=== PATIENT | female | born 1980 | race American Indian/Alaskan Native ===

== ENCOUNTER 2017-08-27 06:19 | Outpatient (CLI) | payer MEDICAID ==
[2017-08-27 06:40] VITALS: BP 109/58
[2017-08-27] MEDS ORDERED: LACTATED RINGERS 500 ML IV ONE (06:59)
--- NOTE | 2017-08-27 07:51 | Ultrasound Report ---
ULTRASOUND OB LIMITED History: Leaking fluid, rupture of membranes Technique: Transabdominal ultrasound with Doppler interrogation. Gestation: Single Position: Cephalic Amniotic Fluid: Normal EVELYN = 17.2 cm Heart Rate: 143 BPM Impression: Normal amniotic fluid.
--- NOTE | 2017-08-27 08:38 | Event Note ---
Date: 08/27/17 S: c/o LOF x one week. Positive FM, Negative vaginal bleeding O: Reactive, Category 1 UC: none SVE: Visually closed U/S: EVELYN: 17cm Spec Exam: Negative pooling, negative Nitz, + Yeast A: IUP at 30 week R/O PPROM-Negative P: Reassurance STI cultures D/C home
--- NOTE | 2017-08-27 08:44 | Discharge Summary ---
Providers - Providers Date of discharge: 08/27/17 Attending physician: MACK LUO Primary care physician: MACK LUO Hospitalization Reason for admission: other (IUP at 30 weeks LOF, negative) Discharge diagnosis: other Condition at discharge: Good Disposition: DC-01 TO HOME OR SELFCARE Plan - Discharge Medications Prescriptions: Fluconazole [Diflucan TAB] 100 mg PO QDAY #3 tablet - Provider Discharge Summary Additional instructions: [] Smoking cessation referral if applicable(refer to patient education folder for contact #) [] Refer to [facility] Booklet Call your doctor immediately for: * Fever > 100.5 * Heavy vaginal bleeding ( >1 pad per hour) * Severe persistent headache * Shortness of breath * Reddened, hot, painful area to leg or breast * Drainage or odor from incision. * Keep incision clean and dry at all times and follow doctor's instructions regarding bathing/showering - Follow up plan Follow up: MACK LUO MD [Primary Care Provider] - Forms: Discharge Signature Page
== END 2017-08-27 08:33 | disposition home or self-care (01) ==
LOC: TRG 06:19
PROVIDERS: ATTEND Obstetrics & Gynecology
DX: O42.92 Full-term premature rupture of membranes, unspecified as to length of time between rupture and onset of labor (principal); Z3A.30 30 weeks gestation of pregnancy
CPT/HCPCS: 59025; 76815; 87210; 87591

== ENCOUNTER 2017-10-12 21:41 | Outpatient (CLI) | payer MEDICAID ==
[2017-10-12 21:55] VITALS: BP 107/59
== END 2017-10-12 22:29 | disposition home or self-care (01) ==
LOC: TRG 21:41
PROVIDERS: ATTEND Obstetrics & Gynecology
DX: O09.523 Supervision of elderly multigravida, third trimester (principal); O26.893 Other specified pregnancy related conditions, third trimester; Z3A.37 37 weeks gestation of pregnancy

== ENCOUNTER 2017-10-25 01:28 | Outpatient (CLI) | payer MEDICAID ==
[2017-10-25 02:21] VITALS: BP 127/60
== END 2017-10-25 03:23 | disposition home or self-care (01) ==
LOC: TRG 01:28
PROVIDERS: ATTEND Obstetrics & Gynecology
DX: O47.1 False labor at or after 37 completed weeks of gestation (principal); Z3A.39 39 weeks gestation of pregnancy

== ENCOUNTER 2017-10-29 01:48 | Inpatient (IN) | payer MEDICAID ==
[2017-10-29] MEDS ORDERED: ZOFRAN IV PRN (02:55)
[2017-10-29] MEDS ORDERED: MINERAL OIL PO PRN (02:55)
[2017-10-29] MEDS ORDERED: BRETHINE SUB-Q PRN (02:55)
[2017-10-29] MEDS ORDERED: BRETHINE IVP PRN (02:55)
[2017-10-29] MEDS ORDERED: ePHEDrine SULFATE IV PRN ×2 (02:55→10:00)
[2017-10-29] MEDS ORDERED: PHENERGAN PO PRN (02:55)
[2017-10-29] MEDS ORDERED: XYLOCAINE 2% INFILTRATI ONE (02:55)
[2017-10-29] MEDS ORDERED: STADOL IV PRN (02:55)
[2017-10-29] MEDS ORDERED: SUBLIMAZE IV PRN (02:55)
[2017-10-29] MEDS ORDERED: PITOCin/NS 30 UNIT/500ML 30 UNITS/500 ML BAG IV SCH ×2 (03:00)
[2017-10-29] MEDS ORDERED: PITOCin/NS 20 UNIT/1000ML DRIP 20 UNITS/1,000 ML BAG IV SCH (03:00)
[2017-10-29 03:02] LABS: Hematocrit 31.4 % (30.3-42.9); Mean Corpuscular HGB Conc 35 % (30-34); Mean Corpuscular Hemoglobin 31 pg (28-32); Mean Corpuscular Volume 88 fl (79-97); Platelet Count 246 K/mm3 (140-440); Red Blood Count 3.55 M/mm3 (3.65-5.03); White Blood Count 6.6 K/mm3 (4.5-11.0)
[2017-10-29] MEDS: LACTATED RINGERS 1,000 ML IV SCH ×2 (03:39→08:00)
--- NOTE | 2017-10-29 04:44 | Ultrasound Report ---
FINAL REPORT EXAM: US OB FOLLOW UP HISTORY: SROM CONFRIM PRESENTATION TECHNIQUE: Limited transabdominal imaging was obtained of the pelvis. FINDINGS: There is a single intrauterine with an estimated gestational age of 39 weeks 1 day based on sonographic criteria. Estimated weight is 3912 grams. The fetus is in cephalic presentation with the head low in the pelvis. The heart rate is 156 BPM. The placenta is fundal in position and is grade 2. The EVELYN is 9.6 cm which is within normal range. A complete survey of organs was not obtained. IMPRESSION: Thirty-nine week 1 day IUP. heart rate is 156 BPM. The fetus is in cephalic presentation.
--- NOTE | 2017-10-29 08:43 | History and Physical Report ---
History of Present Illness Date of examination: 10/29/17 Date of admission: 10/29/17 01:59 History of present illness: 37 yo with SROM at 0100 this am. Start on low dose Pitocin during the night , now active man't. Bolus in process for epidural. First trimester entry into care at 11 weeks gestation. course complicated by AMA with [facility] referral and negative serum NIPT. 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 Late 1hr elevated GCT, 3hr GTT collected 10/28, results unavailable. U/S upon admission: EFW: 3912gms. GBS negative. Past History Past Medical History: no pertinent history [employer] History: chlamydia, herpes, trichomonas Family/Genetic History: hypertension Social history: no significant social history, single - Obstetrical History Expected Date of Delivery: 11/02/17 Actual Gestation: 39 Week(s) 3 Day(s) : 9 Para: 6 Hx # Term Pregnancies: 6 Number of Pregnancies: 0 Spontaneous Abortions: 2 Induced : 0 Number of Living Children: 6 Medications and Allergies Allergies Allergy/AdvReac Type Severity Reaction Status Date / Time No Known Allergies Allergy Verified 10/12/17 21:45 Home Medications Medication Instructions Recorded Confirmed Last Taken Type Doxycycline Hyclate [Doxycycline 100 mg PO BID #14 tablet 05/20/15 10/29/17 Unknown Rx Hyclate TAB] Ibuprofen [Motrin 800 MG tab] 800 mg PO Q8HR PRN #40 tablet 05/20/15 10/29/17 Unknown Rx oxyCODONE /ACETAMINOPHEN [Percocet 1 tab PO Q4HR PRN #30 tab 05/20/15 10/29/17 Unknown Rx 5/325 mg] Fluconazole [Diflucan TAB] 100 mg PO QDAY #3 tablet 08/27/17 10/29/17 Unknown Rx Vit No.129/Iron/Folic 1 each PO DAILY 10/29/17 10/29/17 10/28/17 19:00 History [ Tablet] Active Meds: Active Medications Butorphanol Tartrate (Stadol) 2 mg IV Q2H PRN PRN Reason: Pain , Severe (7-10) Ephedrine Sulfate (Ephedrine Sulfate) 10 mg IV Q2M PRN PRN Reason: Hypotension Fentanyl (Sublimaze) 100 mcg IV Q2H PRN PRN Reason: Labor Pain Last Admin: 10/29/17 07:30 Dose: 100 mcg Lactated Ringer's (Lactated Ringers) 1,000 mls @ 125 mls/hr IV DIRECT MARCO Last Admin: 10/29/17 08:00 Dose: 125 mls/hr Oxytocin/Sodium Chloride (Pitocin/Ns 20 Unit/1000ml Drip) 20 units in 1,000 mls @ 125 mls/hr IV DIRECT MARCO Oxytocin/Sodium Chloride (Pitocin/Ns 30 Unit/500ml) 30 units in 500 mls @ 1 mls /hr IV TITR MARCO; 1 MILLIUNITS/MIN PRN Reason: Protocol Last Titration: 10/29/17 08:18 Dose: 4 milliunits/min, 4 mls/hr Oxytocin/Sodium Chloride (Pitocin/Ns 30 Unit/500ml) 30 units in 500 mls @ 0 mls /hr IV TITR MARCO; As Directed PRN Reason: Protocol Mineral Oil (Mineral Oil) 30 ml PO QHS PRN PRN Reason: Constipation Ondansetron HCl (Zofran) 4 mg IV Q8H PRN PRN Reason: Nausea And Vomiting Promethazine HCl (Phenergan) 25 mg PO Q6H PRN PRN Reason: Nausea And Vomiting Terbutaline Sulfate (Brethine) 0.25 mg SUB-Q ONCE PRN PRN Reason: Hyperstimulation/Hypertonicity Terbutaline Sulfate (Brethine) 0.25 mg IVP ONCE PRN PRN Reason: Hyperstimulation/Hypertonicity Review of Systems All systems: negative - Vital Signs Vital signs: Vital Signs Pulse Pulse Ox 88 100 10/29/17 02:13 10/29/17 02:13 Temp Pulse Resp BP Pulse Ox 97.0 F L 83 18 129/66 98 10/29/17 07:10 10/29/17 07:15 10/29/17 07:30 10/29/17 07:15 10/29/17 03:40 - Physical Exam Abdomen: Positive: normal appearance Vulva: both: normal Uterus: Positive: normal size, normal contour Anus/Rectum: Positive: normal perianal skin - Obstetrical FHR: category 1 Cervical Dilatation: 10 Cervical Effacement Percentage: 100 station: +1 Uterine Contraction Pattern: Regular Uterine Tone Measurement Phase: Resting Uterine Contraction Intensity: Strong/Firm Results Result Diagrams: 10/29/17 02:30 Abnormal lab results 10/29/17 10/29/17 Range/Units 02:30 03:05 RBC 3.55 L (3.65-5.03) M/mm3 MCHC 35 H (30-34) % POC Glucose 110 H (70-105) All other labs normal. Assessment and Plan A: IUP at term Second Stage Labor [place] Rapid Dilatation P: Prepare for PPH Anticipate
--- NOTE | 2017-10-29 09:27 | Procedure Note ---
OB Delivery Note - Delivery Date of Delivery: 10/29/17 (8-6oz male @ 0937) Surgeon: KAM MARTINEZ Estimated blood loss: 300cc - Vaginal Delivery presentation: vertex Delivery position: OA Intrapartum events: precipitous labor- <3hr Delivery induction: oxytocin Delivery monitor: external FHT, external uterine Route of delivery: Delivery placenta: spontaneous Delivery cord: true knot (loose x 1), 3 umbilical vessels Delivery laceration: none Delivery repair: other Anesthesia: epidural - Infant A at 1 minute: 8 at 5 minutes: 9 Infant Gender: Male (Progessed from 1cm to complete 1+, pushed through 3 contractions for viable male, shoulder delivered straight transverse. Dried and placed skin to skin. Cord blood collected. Spont. placenta, Pitocin infusing. Bleeding scant. Fundus firm. No lacerations.)
[2017-10-29] MEDS ORDERED: CYTOTEC ONE (09:30)
[2017-10-29] MEDS ORDERED: METHERGINE IM ONE (09:30)
--- NOTE | 2017-10-29 09:54 | Anesthesia Consultation ---
Anesthesia Consult and Med Hx Date of service: 10/29/17 - Airway Anesthetic Teeth Evaluation: Good ROM Head & Neck: Adequate Mental/Hyoid Distance: Adequate Mallampati Class: Class II Intubation Access Assessment: Probably Good - Pre-Operative Health Status ASA Pre-Surgery Classification: ASA2 Proposed Anesthetic Plan: Epidural, Spinal - Pulmonary Hx Smoking: Yes (previous smoker quit 4 mths ago - smoked for 6 yrs) Hx Asthma: No COPD: No Hx Pneumonia: No - Cardiovascular System Hx Hypertension: No - Central Nervous System Hx Seizures: No Hx Psychiatric Problems: No - Endocrine Hx Renal Disease: No Hx End Stage Renal Disease: No Hx Hypothyroidism: No Hx Hyperthyroidism: No - Hematic Hx Anemia: No Hx Sickle Cell Disease: No - Other Systems Hx Alcohol Use: No Hx Cancer: No
[2017-10-29] MEDS ORDERED: fentaNYL-BUPIV 2 MCG/ML-0.125% 200 MCG/100 ML BAG EPIDURAL SCH (10:00)
[2017-10-29] MEDS ORDERED: NARCAN 2 MG/2 ML IV PRN (10:00)
[2017-10-29] MEDS ORDERED: TUCKS PAD TP PRN (10:05)
[2017-10-29] MEDS ORDERED: DULCOLAX PR PRN (10:05)
[2017-10-29] MEDS ORDERED: BENADRYL PO PRN (10:05)
[2017-10-29] MEDS ORDERED: MILK OF MAGNESIA PO PRN (10:05)
[2017-10-29] MEDS ORDERED: TYLENOL PO PRN (10:05)
[2017-10-29] MEDS ORDERED: SODIUM CHLORIDE FLUSH SYRINGE 10 ML IV NR (11:00)
[2017-10-29] MEDS ORDERED: MOTRIN PO SCH (11:00)
[2017-10-29] MEDS: NORCO 5/325 PO PRN ×2 (12:12→12:30)
[2017-10-29 21:22] LABS: Hematocrit 30.4 % (30.3-42.9); Hemoglobin 10.4 gm/dl (10.1-14.3)
[2017-10-30] MEDS ORDERED: MOTRIN PO SCH
[2017-10-30] MEDS ORDERED: NORCO 5/325 ONE (08:18)
[2017-10-30] MEDS: NORCO 5/325 PO PRN ×2 (08:21→18:00)
[2017-10-30] MEDS ORDERED: PRENATAL VITAMIN PO SCH (10:00)
[2017-10-30] MEDS: MOTRIN PO PRN (11:41)
--- NOTE | 2017-10-30 15:59 | Progress Note ---
Assessment and Plan A: PPD#1 s/p at term with right clavicular fracture after rapid descent and transverse position during delivery P: Routine advances Increase Ibuprofen dosage to 800 mg Anticipate discharge tomorrow. Subjective - Subjective Date of service: 10/30/17 Principal diagnosis: s/p at term Interval history: No overnight events. Pt reports cramping presently. Patient reports: appetite normal, voiding normally, pain well controlled, ambulating normally, no nauseated Pearl: other (right clavicular fracture ) Objective - Vital Signs Latest vital signs: Vital Signs Temp Pulse Resp BP BP Pulse Ox 10/30/17 11:41 20 10/30/17 08:00 98.5 F 63 20 99/54 10/30/17 01:04 98.1 F 70 22 107/49 97 10/30/17 00:36 18 10/29/17 21:54 98.4 F 20 101/51 10/29/17 16:52 98.8 F 82 20 111/52 Intake and Output 10/30/17 10/30/17 10/30/17 06:59 14:59 22:59 Intake Total 360 Balance 360 Intake: Oral 360 Other: Total, Intake Amount 360 # Voids Void 1 - Exam Breasts: Present: deferred Cardiovascular: Present: Regular rate Lungs: Present: Clear to auscultation Abdomen: Present: soft (obese) Uterus: Present: fundal height at umbilicus Extremities: Present: normal
--- NOTE | 2017-10-30 16:01 | Discharge Summary ---
Providers - Providers Date of Admission: 10/29/17 01:59 Date of discharge: 10/31/17 Attending physician: CRISTOBAL DUMONT MD Primary care physician: CRISTOBAL DUMONT MD Hospitalization Reason for admission: rupture of membranes Delivery: Procedure details: Please see delivery note. Episiotomy: none Laceration: none complications: none Discharge diagnosis: IUP at term delivered baby: male Hospital course: Pt tolerated labor and vaginal delivery well. Her course was uncomplicated and she met discharge criteria on PPD#2. Condition at discharge: Stable Disposition: DC-01 TO HOME OR SELFCARE - Discharge Diagnoses (1) Term of male Status: Acute (2) Obesity Status: Acute Qualifiers: Body mass index: BMI 37.0-37.9 Plan - Discharge Medications Prescriptions: HYDROcodone/APAP 5-325 [[place] 5/325] 1 each PO Q6HR PRN #30 tablet PRN Reason: Pain Ibuprofen [Motrin] 800 mg PO Q8HR PRN #30 tablet PRN Reason: Pain - Provider Discharge Summary Activity: routine, no sex for 6 weeks, no heavy lifting 4 weeks, no strenuous exercise Diet: routine Instructions: routine Additional instructions: [] Smoking cessation referral if applicable(refer to patient education folder for contact #) [] Refer to [facility]'s [facility] Booklet Call your doctor immediately for: * Fever > 100.5 * Heavy vaginal bleeding ( >1 pad per hour) * Severe persistent headache * Shortness of breath * Reddened, hot, painful area to leg or breast * Drainage or odor from incision. * Keep incision clean and dry at all times and follow doctor's instructions regarding bathing/showering Please schedule your son's circumcision before he is one month old. - Follow up plan Follow up: KAM MARTINEZ CNM [Advanced Practice Nurse] - 11/26/17 (Please schedule exam )
[2017-10-31] MEDS: MOTRIN PO PRN (08:53)
[2017-10-31] MEDS ORDERED: MOTRIN PO PRN (14:07)
--- NOTE | 2017-10-31 14:12 | Progress Note ---
Subjective Date of service: 10/31/17 Principal diagnosis: s/p at term Interval history: Patient post delivery day 2 complaining of numbness in hands and pain in back. Inspected epidural site, no swelling or redness present, site of epidural injection healed. Pain in area of left thorax, and hands tingling. There was no evidence of trauma at the site of pain. There was no tingling when epidural was placed. Patient did not want any oral narcotics, because they make her feel funny. Spoke with patient nurse, suggested calling attending and see if PO toradol might be helpful. Objective - Constitutional Vitals: Vital Signs - 12hr 10/31/17 08:42 Temperature 98.3 F Pulse Rate 69 Respiratory 18 Rate Blood Pressure 111/58 [Right] - Labs CBC & Chem 7: 10/29/17 21:08
[2017-10-31] MEDS ORDERED: PEPCID PO SCH (15:00)
--- NOTE | 2017-10-31 18:57 | Event Note ---
Date: 10/31/17 I was cocntacted by nurse that patient had back pain upper. she states that she feels like she is coming down with something. Exam benign with muscular tenderness in neck and upper back area. CXR ordered and Nsaids recommneded. await cxr and if normal will discharge home. Per the nurse patient feels better and smiling with normal vital signs
[2017-10-31 20:23] VITALS: BP 131/74
--- NOTE | 2017-10-31 21:05 | XRay Report ---
FINAL REPORT PROCEDURE: XR CHEST ROUTINE 2V TECHNIQUE: Two view chest HISTORY: pain COMPARISON: No prior studies are available for comparison. FINDINGS: Heart is not enlarged. Lungs are clear. IMPRESSION: No acute disease
== END 2017-10-31 22:00 | disposition home or self-care (01) | DRG 775 ==
LOC: TRG 01:48 → LD 01:59 → OB 11:45
PROVIDERS: ADMIT Obstetrics & Gynecology; ATTEND Obstetrics & Gynecology
PROC: 10E0XZZ Delivery of Products of Conception, External Approach (ICD-10-PCS; principal; 2017-10-29)
PROC: 3E0R3BZ Introduction of Anesthetic Agent into Spinal Canal, Percutaneous Approach (ICD-10-PCS; 2017-10-29)
PROC: 00HU33Z Insertion of Infusion Device into Spinal Canal, Percutaneous Approach (ICD-10-PCS; 2017-10-29)
DX: O62.3 Precipitate labor (principal); O99.214 Obesity complicating childbirth; E66.9 Obesity, unspecified; Z3A.39 39 weeks gestation of pregnancy; Z37.0 Single live birth; Z87.891 Personal history of nicotine dependence; Z68.37 Body mass index [BMI] 37.0-37.9, adult
CPT/HCPCS: 36415; 71020; 76816; 82962; 85014; 85018; 85027; 86592; 86850; 86900; 86901; J2210; J2590; J3010; J7120

== ENCOUNTER 2018-04-01 14:28 | Outpatient (CLI) | payer MEDICAID ==
--- NOTE | 2018-04-01 18:57 | Ultrasound Report ---
FINAL REPORT EXAM: US PELVIC COMPLETE HISTORY: PELVIC PAIN in the midline . LMP 02/27/2018 TECHNIQUE: Ultrasound of the pelvis using transabdominal and transvaginal imaging PRIORS: OB ultrasound 10/29/2017 FINDINGS: Uterus: Uterus is elongated in size and normal and homogeneous in echogenicity without focal fibroid formation. The uterus measures 11.2 x 4.5 x 6.4 cm in size. Endometrial stripe: Normal and uniform in thickness measuring 7.6 mm. There is an echogenic linear T-shaped IUD present within the fundal portion of the endometrial canal. Ovaries: Both ovaries appear normal in size and echogenicity with normal blood flow bilaterally. The right ovary measures 1.9 x 1.2 x 1.4 cm and the left ovary measures 2.6 x 0.9 x 2.2 cm in size. Other: There is no evidence for solid adnexal mass or free fluid in the cul-de-sac seen. IMPRESSION: IUD in satisfactory position. Elongated uterus. Otherwise, negative pelvic ultrasound.
== END 2018-04-01 14:29 | disposition home or self-care (01) ==
LOC: US 14:28
PROVIDERS: ATTEND Obstetrics & Gynecology
DX: R10.32 Left lower quadrant pain (principal); Z96.0 Presence of urogenital implants
CPT/HCPCS: 76830; 76856

== ENCOUNTER 2018-11-04 16:03 | Emergency (ER) | payer MEDICAID, OTHER ==
[2018-11-04] MEDS ORDERED: MOTRIN PO ONE (17:33)
[2018-11-04] MEDS ORDERED: FLEXERIL PO ONE (17:34)
[2018-11-04] MEDS ORDERED: THERMAZENE 50 GRAM TP ONE (17:35)
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
== END 2018-11-04 19:03 | disposition left against medical advice (07) ==
LOC: ED 16:03
DX: S60.222A Contusion of left hand, initial encounter (principal); S60.221A Contusion of right hand, initial encounter; M25.562 Pain in left knee; V49.49XA Driver injured in collision with other motor vehicles in traffic accident, initial encounter; W22.11XA Striking against or struck by driver side automobile airbag, initial encounter; Y93.89 Activity, other specified; Y92.410 Unspecified street and highway as the place of occurrence of the external cause; Y99.8 Other external cause status
CPT/HCPCS: 99283